=== PATIENT | female | born 1990 ===

== ENCOUNTER 2016-11-16 17:45 | Emergency (ER) | payer BC ==
--- NOTE | ~2016-11-16 | ER ---
PATIENT'S NAME: GARY MAXWELL [facility] AGE: 26 Y [address] ROOM: [place] [id number] LOCATION: ED ADMIT DATE: 11/16/2016 ER/Outpatient Report DISCHARGE DATE: 11/16/2016 FAMILY PHYSICIAN: PHYSICIAN, NO ATTENDING PHYSICIAN: Gilmer Feliciano Time of Arrival: 1750 hours. Time of Evaluation: 1752 hours. CHIEF COMPLAINT: Weak and tired. HISTORY OF PRESENT ILLNESS: The patient states last night she had some left upper quadrant abdominal pain, and today it is worse in the lower aspect of the left lower quadrant. She states she is nauseated, but has not vomited. She has had chills off and on but no fever. She ate breakfast this morning but did not have any lunch or supper yet. Her last period was on 10/29/2016. Last bowel movement was or Wednesday, 4 or 5 days ago. She denies any pain with urination. Does not have any urinary frequency. ALLERGIES: NO KNOWN ALLERGIES. MEDICATIONS: No current medications. PAST MEDICAL HISTORY: Includes a right ovarian cyst. 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 SOCIAL HISTORY: She denies the use of tobacco, drugs, or alcohol. REVIEW OF SYSTEMS: All negative other than those mentioned in the HPI. PHYSICAL EXAMINATION: VITAL SIGNS: She weighs 61.9 kg, blood pressure is 131/75, pulse of 96, respirations 20, temperature of 99.7 tympanic, O2 saturations 100% on room air. GENERAL: She is awake, alert, and oriented x4. SKIN: [place], warm, and dry. PATIENT'S NAME: GARY MAXWELL [facility] AGE: 26 Y [address] ROOM: [place] [id number] LOCATION: [facility] ADMIT DATE: 11/16/2016 ER/Outpatient Report DISCHARGE DATE: 11/16/2016 FAMILY PHYSICIAN: PHYSICIAN, NO ATTENDING PHYSICIAN: Gilmer Feliciano RESPIRATIONS: Even and nonlabored. Lung sounds are clear throughout. HEART: Regular rate and rhythm. ABDOMEN: Soft and nondistended. Bowel sounds are present. She is tender to palpate in the lower abdominal region on the left. LABORATORY DATA AND X-RAYS: Lab work was drawn. CBC is within normal limits. Chem panel was done, it is within normal limits. Clean-catch UA was obtained, it is negative. Urine is negative. Three-way abdominal x-ray was completed, reviewed with Dr. Rucker, shows increased diffuse stool pattern. IMPRESSION: Constipation. PLAN: Home, rest. Increase her fluids. A bottle of magnesium citrate was sent home with the patient to drink tonight. If she continues to have problems, she is to follow up with her primary provider. She verbalized understanding. MAIK DOBBS APRN FOR MD GALLO RODRIGUEZ/ricky /[id number] d: 11/17/16 0109 t: 12/07/16 1654, OUTPATIENT REPORT
[2016-11-16 18:12] LABS: BILIRUBIN URINE NEGATIVE (NEGATIVE); BLOOD URINE NEGATIVE /UL (NEGATIVE); COLOR URINE YELLOW (YELLOW); GLUCOSE URINE NEGATIVE (NEGATIVE); KETONE URINE NEGATIVE (NEGATIVE); LEUKOCYTES URINE NEGATIVE /UL (NEGATIVE); NITRITE URINE NEGATIVE (NEGATIVE); PH URINE 6.5 (4.0-8.0); PROTEIN URINE NEGATIVE (NEGATIVE); SPEC GRAVITY URINE 1.005 (1.003-1.035); TURBIDITY URINE CLEAR (CLEAR); UROBILINOGEN URINE NORMAL (NORMAL)
[2016-11-16 18:19] LABS: BASOPHIL % 0.2 %; EOSINOPHIL # 0.1 K/uL (0.0-0.5); EOSINOPHIL % 1.4 %; HEMATOCRIT 36.6 % (33.0-46.0); HEMOGLOBIN 12.7 g/dL (11.0-15.0); IMMATURE GRANULOCYTE % 0.3 %; LYMPHOCYTE # 0.5 K/uL (0.8-4.0); LYMPHOCYTE % 8.4 %; MCH 28.3 pg (27.0-34.0); MCHC 34.7 gm/dL (32.0-36.5); MCV 81.7 fl (83.0-98.0); MONOCYTE # 0.3 K/uL (0.0-1.0); MONOCYTE % 4.2 %; MPV 11.3 fl (9.4-12.4); NEUTROPHIL # (ANC) 5.5 K/uL (1.8-7.8); NEUTROPHIL % 85.5 %; NRBC % 0 /100WBC (0-0.00); PLATELET COUNT 152 K/uL (150-450); RBC 4.48 M/uL (3.50-5.00); RDW-CV 13.3 % (11.9-14.6); WBC 6.5 K/uL (4.0-11.0)
[2016-11-16 18:38] LABS: ALBUMIN 4.1 gm/dL (3.5-5.0); ALK PHOS 65 IU/L (33-138); ALT 16 IU/L (12-78); ANION GAP 10.9 (10.0-19.0); AST 16 IU/L (10-40); BLOOD UREA NITROGEN 11 mg/dL (6-24); CALCIUM 8.4 mg/dL (8.5-10.5); CHLORIDE 110 mMol/L (96-110); CO2 24 mMol/L (22-32); ESTIMATED GFR (MDRD EQUATION) > 60; POTASSIUM 3.9 mMol/L (3.7-5.1); SODIUM 141 mMol/L (135-145); TOTAL BILIRUBIN 1.1 mg/dL (0.0-1.5); TOTAL PROTEIN 7.2 g/dL (6.0-8.4)
== END 2016-11-16 18:57 | disposition disaster alternative care site (69) ==
LOC: GMED 17:45
PROVIDERS: Emergency Medicine
DX: K59.00 Constipation, unspecified (principal); Z85.43 Personal history of malignant neoplasm of ovary; Z90.721 Acquired absence of ovaries, unilateral